=== PATIENT | female | born 2000 | race Caucasian/White ===

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

== ENCOUNTER → 2022-06-02 | Outpatient (CLI) | payer BC, SELFPAY ==
[2022-06-02 15:34] LABS: Absolute Lymphocyte Count 2.29 X10^3/uL (0.83-4.51); Absolute Neutrophil Count 8.1 X10^3/uL (2.0-7.7); Basophil# 0.07 X10^3/uL; Basophil% 0.6 % (0-1); Eosinophil# 0.67 X10^3/uL; Eosinophils% 5.7 % (0-5); Hematocrit 36.6 % (37-47); Hemoglobin 12.6 g/dL (12.0-15.0); Lymphocyte # 2.29 X10^3/ul (0.83-4.51); Lymphocyte % 19.4 % (19-41); Mean Corp Hgb Conc 34.4 g/dL (32-36); Mean Corpuscular Hgb 31.4 pg (27.0-32.0); Mean Corpuscular Volume 91.3 fL (81-99); Mean Platelet Vol. 10.1 fl (6.2-12.0); Monocyte# 0.66 X10^3/uL; Monocyte% 5.6 % (0-10); NRBC Flagged by Analyzer 0 % (0-5); Neutrophil # 8.07 X10^3/uL (2.7-7.7); Neutrophil % 68.2 % (47-70); Platelet Count 312 K/mm3 (150-450); RBC Distribution Width CV 11.6 % (11.6-14.6); RBC Distribution Width SD 38.9 fl (35.1-43.9); Red Blood Count 4.01 M/mm3 (4.2-5.4); White Blood Count 11.8 K/mm3 (4.4-11.0)
[2022-06-02 16:39] LABS: HIV - WCH Non-Reactive (Nonreactive); Hepatitis B Surface Antigen Non-Reactive (Nonreactive); Hepatitis C Antibody Non-Reactive (Nonreactive); Rubella IgG Reactive (Nonreactive); Syphilis Antibodies Non-reactive
[2022-06-05 00:07] LABS: Chlamydia By Nucleic Acid AMP Negative (Negative)
[2022-06-05 17:10] LABS: Gonococcus By Nucleic Acid AMP Negative (Negative)
[2022-06-06 15:43] LABS: V-Zoster IgG (Immunity) 389 index (Immune >165)
== END | disposition home or self-care (01) ==
LOC: WOBLAB 14:38
PROVIDERS: PCP Pediatrics; Visit Provider Student in an Organized Health Care Education/Training Program
DX: Z34.81 Encounter for supervision of other normal pregnancy, first trimester (principal)
CPT/HCPCS: 36415; 85025; 86703; 86762; 86780; 86787; 86803; 87086; 87340; 87491; 87591

== ENCOUNTER → 2022-10-19 | Outpatient (CLI) | payer OTHER, MEDICAID, SELFPAY ==
[2022-10-19 17:31] LABS: Absolute Neutrophil Count 8.9 X10^3/uL (2.0-7.7); Basophil# 0.08 X10^3/uL; Basophil% 0.6 % (0-1); Eosinophil# 0.72 X10^3/uL; Eosinophils% 5.8 % (0-5); Hematocrit 33.7 % (37-47); Hemoglobin 11.6 g/dL (12.0-15.0); Lymphocyte % 14.4 % (19-41); Mean Corp Hgb Conc 34.4 g/dL (32-36); Mean Corpuscular Hgb 32.2 pg (27.0-32.0); Mean Corpuscular Volume 93.6 fL (81-99); Mean Platelet Vol. 10.8 fl (6.2-12.0); Monocyte# 0.85 X10^3/uL; Monocyte% 6.8 % (0-10); NRBC Flagged by Analyzer 0 % (0-5); Neutrophil # 8.85 X10^3/uL (2.7-7.7); Neutrophil % 71.1 % (47-70); Platelet Count 233 K/mm3 (150-450); RBC Distribution Width CV 12.1 % (11.6-14.6); RBC Distribution Width SD 41.6 fl (35.1-43.9); White Blood Count 12.5 K/mm3 (4.4-11.0)
[2022-10-19 18:46] LABS: Glucose Challenge Gest 1H 50g 74 mg/dL (70-140)
== END | disposition home or self-care (01) ==
LOC: WOBLAB 16:30
PROVIDERS: PCP Pediatrics; Visit Provider Student in an Organized Health Care Education/Training Program
DX: Z34.82 Encounter for supervision of other normal pregnancy, second trimester (principal)
CPT/HCPCS: 36415; 82950; 85025

== ENCOUNTER 2022-12-23 19:15 | Inpatient (IN) | payer OTHER, MEDICAID, SELFPAY ==
[2022-12-23 18:06] VITALS: BP 136/80; PULSE 73; TEMP 37.4; O2SAT 99
[2022-12-23 18:21] VITALS: BMI 30.6
[2022-12-23 18:53] LABS: ROM Internal Control Test YES-OK TO RESULT pt. (Internal QC)
[2022-12-23 18:54] LABS: ROM Patient Test POSITIVE (Negative)
[2022-12-23] MEDS: Lactated Ringers 1,000 ML 50 ML IV (20:00)
--- NOTE | 2022-12-23 20:12 | PCM.HP.BLA ---
History and Physical Date of Admission: 12/23/22 Chief complaint: Leakage of fluid and back pain History present illness: 22-year-old G1, P0 at 37 weeks and 1 day with ALEXANDER 01/12/2023 arrives with lower back cramping also noted to have leakage of clear fluid since 630 this morning. Denies headache, vision change, chest pain, shortness of breath, nausea vomit, right upper quadrant pain. Patient states good movement. is complicated by BMI 30 Obstetric history: G1: Current Past medical history: None Medications: vitamin Allergies: No known drug allergies Past surgical history: None Family history: Denies history DVT or PE Social history: Denies smoking, alcohol use, drug use Review of systems: Besides above pertinent positives a full review of systems was performed and found to be negative Physical exam: Vitals: Blood pressure 136/80 pulse 73 temperature 99.3 ?F SPO2 99% on room air General: Normal-appearing no acute distress HEENT: Normocephalic/atraumatic no cervical lymphadenopathy Cardiac/respiratory: No use of accessory muscles, nonlabored breathing Abdomen: Soft, nontender, gravid Extremities: No peripheral edema normal peripheral pulses Psych: Normal affect, demeanor nonpressured speech Bedside ultrasound: Cephalic Labs: ROM positive Assessment and plan: 22-year-old G1, P0 at 37 weeks and 1 day arrives with PROM Admit labor and delivery CEFM GBS unknown: For rapid GBS. If positive rapid GBS for penicillin treatment. If rapid GBS negative will hold penicillin, patient with no risk factors at this time, will hold penicillin until 18 hours ruptured which would be at 12/24 @00:30. Reviewed this plan with nursing, to call if questions. Educated patient on unknown GBS and plan for antibiotics versus no antibiotics PROM: Patient with rupture membranes and no signs of labor will augment with Cytotec and later Pitocin. Educated patient on plan for augmentation Anesthesia to see
[2022-12-23 20:29] LABS: Absolute Lymphocyte Count 2.25 X10^3/uL (0.83-4.51); Absolute Neutrophil Count 11.6 X10^3/uL (2.0-7.7); Basophil% 0.6 % (0-1); Eosinophil# 0.37 X10^3/uL; Eosinophils% 2.4 % (0-5); Hematocrit 34.9 % (37-47); Hemoglobin 11.6 g/dL (12.0-15.0); Lymphocyte # 2.25 X10^3/ul (0.83-4.51); Lymphocyte % 14.5 % (19-41); Mean Corp Hgb Conc 33.2 g/dL (32-36); Mean Corpuscular Hgb 30.3 pg (27.0-32.0); Mean Corpuscular Volume 91.1 fL (81-99); Mean Platelet Vol. 11.9 fl (6.2-12.0); Monocyte# 1.01 X10^3/uL; Monocyte% 6.5 % (0-10); NRBC Flagged by Analyzer 0 % (0-5); Neutrophil # 11.63 X10^3/uL (2.7-7.7); POSITIVE COUNT YES; RBC Distribution Width SD 39.6 fl (35.1-43.9); Red Blood Count 3.83 M/mm3 (4.2-5.4); White Blood Count 15.5 K/mm3 (4.4-11.0)
[2022-12-23 20:58] LABS: Differential Indicated SCAN CRITERIA MET; Platelet Count 228 K/mm3 (150-450)
[2022-12-23 20:59] LABS: Differential Comment SCANNED
[2022-12-23 21:00] LABS: Syphilis Antibodies Non-reactive
[2022-12-23 21:26] VITALS: TEMP 36.8
[2022-12-23 21:30] VITALS: BP 126/61; PULSE 70
[2022-12-23 21:47] LABS: Group B Strep DNA By PCR Negative (Negative); Internal Control PASS; Probe Check PASS; Specimen Processing Control PASS
[2022-12-23] MEDS: miSOPROStol 25 MCG TABLET VAGINAL (21:50)
[2022-12-23 22:41] VITALS: TEMP 36.8
[2022-12-23 23:18] VITALS: TEMP 36.1
[2022-12-23 23:19] VITALS: BP 121/77; PULSE 66; PULSE 79; O2SAT 99
[2022-12-23] MEDS: Acetaminophen 500 MG Tablet PO (23:19)
[2022-12-24] VITALS (53 sets, daily range): BP systolic 102–138; BP diastolic 55–89; PULSE 56–96; RESP 14–18; TEMP 35.8–36.9; O2SAT 93–100
[2022-12-24] MEDS: LACTATED RINGERS 500 ML 999 ML IV ×2 (00:55→02:44)
[2022-12-24] MEDS: fentaNYL-bupivacaine (epidural) 100 ML BAG EPIDURAL (03:36)
[2022-12-24] MEDS: Terbutaline 1 MG/ML Vial 0.25 MG SC (04:10)
[2022-12-24] MEDS: Penicillin G 3,000,000 Units 50 ML 100 UNITS IV (05:23)
[2022-12-24] MEDS: Sodium Citrate/Citric Acid 30 ML UDC PO (06:54)
[2022-12-24] MEDS: Acetaminophen 500 MG Tablet 1000 MG PO ×3 (06:54→20:07)
--- NOTE | 2022-12-24 07:01 | PCM.PN.OB ---
Subjective Subjective Overall patient comfortable in bed with epidural Objective Data Objective Data Vital Signs: Vital Signs Temp Pulse Resp BP Pulse Ox O2 Del Method 97.2 F L 87 18 114/68 100 Room Air 12/24/22 06:51 12/24/22 06:52 12/24/22 06:51 12/24/22 06:51 12/24/22 06:52 12/24/22 06:51 Oxygen Delivery Method Room Air Weight: 173 lb Body Mass Index (BMI) 30.6 Intake & Output: Intake and Output for Last 24 Hours 12/22/22 12/23/22 12/24/22 23:59 23:59 23:59 Intake Total 1497.5 / 1497.5 Balance 1497.5 / 1497.5 Lab / Micro Data Result Diagrams: 12/23/22 19:50 Labs: Laboratory Results - last 24 hr 12/23/22 18:15: Vag Amniotic Fld Detect POSITIVE H 12/23/22 19:50: WBC 15.5 H, RBC 3.83 L, Hgb 11.6 L, Hct 34.9 L, MCV 91.1, MCH 30.3, MCHC 33.2, RDW Std Deviation 39.6, RDW Coeff of Deandra 12.0, Plt Count 228, MPV 11.9, Immature Gran % (Auto) 1.000 H, Neut % (Auto) 75.0 H, Lymph % (Auto) 14.5 L, [place] % (Auto) 6.5, Eos % (Auto) 2.4, Baso % (Auto) 0.6, Absolute Neuts (auto) 11.6 H, Absolute Lymphs (auto) 2.25, Nucleated RBC % 0, Differential Comment SCANNED 12/23/22 19:50: Blood Type AB POSITIVE, Antibody Screen NEGATIVE 12/23/22 19:50: Syphilis Total Ab Non-reactive 12/23/22 20:00: Group B Strep DNA Negative, Specimen Comment Not Reportable Physical Exam Const alert, oriented x3, average body habitus and healthy appearing HEENT normocephalic and moist oral mucous membranes Eyes PERRL Neck full ROM Resp normal respiratory effort, no retractions and no use of accessory muscles Psych mental status grossly normal, affect normal, speech normal and activity/motor behavior normal Assessment & Plan (1) : PLAN: Called overnight by nursing with either prolonged deceleration or recurrent late decelerations. Given orders overnight for terbutaline, after terbutaline continue position change. Repeat call by nursing discussed some improvement with heart rate tracing and then moments of recurrent lates, discussed expectant management and if unresolved for section. Called by nursing for repeat prolonged deceleration given orders that patient in need of primary section to get the surgical team ready and orders for 2 g Ancef and 500 mg of azithromycin. Upon my arrival patient seen and examined overall doing well, educated patient on heart rate tracing and overnight monitoring. Discussed no improvement with terbutaline and intolerance to labor. Educated patient on recommendation for primary section for intolerance to labor. Educated patient on the risk benefits alternatives include but are not limited to visceral or vascular injury, prolonged hospitalization, blood loss and need for transfusion, reoperation. Patient stated understanding wish to proceed. All questions were answered and consent was signed. For now
[2022-12-24] MEDS: Cefazolin 2 GM in 0.9% Normal Saline 100 ML IV (07:04)
[2022-12-24] MEDS: Methylergonovine 0.2 MG/ML Ampul IM (07:23)
--- NOTE | 2022-12-24 07:41 | OP.PCM_ITS ---
Details Operative Information Date of Procedure: 12/24/22 Pre-Operative Diagnosis: Term, intolerance to labor, failure to progress Post-Operative Diagnosis: Term, intolerance to labor, failure to progress scale technician #1: Yannick Lo Findings Description of Procedure: Procedure: Primary low transverse section Via Pfannenstiel incision Surgeon: Agustin Suh MD Anesthesia: Epidural EBL: 700 cc Urine output: 400 cc IV fluids: 1000 cc Complications: None Specimen: None Findings: Female infant in vertex position Apgars 8/9. Normal uterus, tubes, and ovaries. Consent: Patient arrived with PROM, augmentation of labor with Cytotec and Pitocin with failure to progress and intolerance to labor. Patient elects for primary low-transverse section Via Pfannenstiel incision. Patient understands risk of the procedure include but are not limited to visceral or vascular injury, prolonged hospitalization, blood loss need for transfusion, reoperation. Patient state understanding wish to proceed. All questions were answered and consent was signed. Procedure: Patient was brought back to the OR where epidural anesthesia was found to be adequate. 2 g of Ancef and 500 mg of azithromycin were given for infection prophylaxis. Patient prepared and draped in a supine position with leftward tilt. A Pfannenstiel incision was made at the skin with a scalpel. The incision carried down to the fascia with a scalpel. The fascia was excised and extended laterally. Rectus muscle was dissected the midline down to the level of the pubic symphysis. Preperitoneal fatty tissue was noted and peritoneum was entered bluntly. Peritoneum was extended superiorly and inferiorly with good visualization of bladder. Bladder blade was inserted and vesicouterine peritoneum was identified. Low transverse hysterotomy incision was made. Hand was placed in the incision and gentle fundal pressure was applied once the head was brought into the incision and bladder blade was removed. Head and shoulders were delivered with ease. Cord was clamped and cut. Baby handed off to nursing. IV oxytocin per protocol and prophylactic IM Methergine given to ini tiate uterine contractions. Uterus was exteriorized and wiped out with dry laparotomy sponge in order to remove remaining placental membranes. Uterus was closed in a continuous running fashion. [id number] sutures were used for hemostasis. Good hemostasis was noted. Uterus was placed back in the abdominal cavity and the incision was reinspected, good hemostasis was noted. Fascia was closed in continuous running fashion with PDS suture. Subcutaneous irrigation was performed, good hemostasis was noted. Skin was closed in a subcuticular fashion. All counts were correct x2. Patient tolerated procedure well and was brought to recovery in a stable condition.
[2022-12-24] MEDS: Oxytocin 15 Units/NS 250ml 15 UNITS/250 ML IV.SOLN 83 UNITS IV (08:00)
[2022-12-24] MEDS: Ketorolac 30 MG/ML Syringe IV ×3 (09:19→20:54)
[2022-12-24] MEDS: Lactated Ringers 1,000 ML 100 ML IV (12:05)
[2022-12-24] MEDS: DiphenhydrAMINE 25 MG Capsule PO (13:43)
[2022-12-24] MEDS: 0.9% Saline Lock 10 ML Syringe IV ×2 (15:03→20:54)
[2022-12-24] MEDS: Enoxaparin 40 MG/0.4 ML Syringe SC (20:07)
[2022-12-25] MEDS: Acetaminophen 500 MG Tablet 1000 MG PO ×3 (02:06→16:12)
[2022-12-25] MEDS: Ketorolac 30 MG/ML Syringe IV (03:06)
[2022-12-25] MEDS: 0.9% Saline Lock 10 ML Syringe IV (03:06)
--- NOTE | 2022-12-25 03:40 | NURSING ---
pt voided twice after after cath removal. First void not measured in hat, 2nd void 100ml.
[2022-12-25 05:40] LABS: Hematocrit 30.6 % (37-47); Mean Corp Hgb Conc 32.7 g/dL (32-36); Mean Corpuscular Hgb 29.7 pg (27.0-32.0); Mean Corpuscular Volume 90.8 fL (81-99); Mean Platelet Vol. 11.2 fl (6.2-12.0); Platelet Count 205 K/mm3 (150-450); RBC Distribution Width CV 12.4 % (11.6-14.6); RBC Distribution Width SD 40.2 fl (35.1-43.9); Red Blood Count 3.37 M/mm3 (4.2-5.4); White Blood Count 15.8 K/mm3 (4.4-11.0)
[2022-12-25 07:51] VITALS: BP 112/68; PULSE 65; RESP 16; TEMP 36.3; O2SAT 98
--- NOTE | 2022-12-25 10:11 | PCM.DC.BLA ---
Discharge Summary Date of Admission: 12/23/22 Date of Discharge: 12/25/22 Summary: Patient arrived on 12/23/2022 with spontaneous rupture of membranes. Labor was attempted to augment but intolerance of labor subsequently had primary section on 12/24/2022. Routine postoperative recovery and discharged home on 12/25/2022 Meaningful Use Info Meaningful Use Diagnoses (Choose all that apply): None applicable Discharge Plan Admission Admit Date/Time: 12/23/22 19:15 Primary Reason for Your Visit: Spontaneous rupture of membranes Attending Provider: Agustin Suh Primary Care Provider: Aparna Aviles Primary Instructions Additional Instructions / Restrictions: Regular diet. Okay to shower. No tub baths for 2 weeks. No lifting over 25 pounds for 2 to 3 weeks. No intercourse for 4 to 6 weeks. Call if fevers, chills, chest pain, shortness of breath. Follow-up 2 weeks postoperatively Discharge Orders/Prescriptions Prescriptions: New oxycodone 5 mg Tablet 5 mg PO Q6H PRN PRN (Reason: Pain Score 7-10) 4 Days Qty: 16 0RF Discontinued 1 tab PO.IVFORM DAILY Referrals / Follow Up: Care Physician,Aparna Primary [Primary Care Provider] - Disposition Disposition (needs filled in before D/C Order can be placed): Home, Self Care
--- NOTE | 2022-12-25 10:50 | CASEMGMT ---
Social Work Assessment Labor and Delivery Unit Reason for Referral: patient request resources History obtained from: medical records and mother of baby (MOB) Household composition: MOB reports she and her significant other rent a home and have no other children. Patient's parent/guardian status: MOB reports she has been with FOB, Kvng Lovelace for five years. FOB is actively involved with MOB?s care and NB needs. FOB Is employed at his father?s business and will have ?some? time off for paternity leave. MOB reports no concerns with DV, AOD or MH for FOB. ? Medical History: MOB reports this is her first . MOB was engaged in care with Jamison at [facility] since April. MOB reports no current plan for control. NB is Caraline, born 12/24/22, weighing 6 pounds 14 ounces. NB?s visual display associate will be Dr. العلي and MOB plans to breast feed. Educational Status: MOB reports highest level of education is high school. 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 while on leave, however, patient explained she was informed she wouldn?t be able to return after maternity leave. 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 Patient?s significant other is employed night time babysitter. Infant Supplies: MOB reports having all the supplies needed including a car seat, bassinet in their bedroom, clothes and diapers/wipes. MOB reports NB will transition to their own room after a year old into a crib. Childcare/Caregiver(s): MOB reports she will be home with NB but will eventually find a job when the NB is older. MOB explained they have assistance from MOBs Mom and FOBs Mom. Transportation: MOB report they have vehicles, no concerns. ?? Programs/Agencies Involved: ???MOB reports insurance with [facility] and explained she sent an email to schedule an appointment for unemployment, SW encouraged MOB to call or o in person. MOB plans to sign up with [facility]. ?? Children Services/Legal Issues: None reported??? Behavioral Health Issues: ??Mental Health History:? MOB reports no mental health history MOB denies AOD use or history and reports not being engaged in counseling services. Family/Social Stressors:? No stressors identified. Support Systems: MOB reports she is supported by FOB, their parents and her best friend. Depression/Shaken Baby/Safe Sleeping: SW educated MOB on depression/anxiety as well as shaken baby. MOB report NB will be sleeping in a basinet beside their bed. SW also educated MOB on safe sleep. SW also provided MOB with further information on the topics. MOB report understanding and voice no other needs. SW encouraged MOB to contact OB or PCP if she is concerned with symptoms. ??? ASSESSMENT:? SW met with MOB and introduced herself and role as [facility] Cashier General. MOB in agreement to speak with SW with FOB?s mother present. SW utilized open and close ended questions to gather information needed for an assessment. MOB report having supplies needed, identified supports and reports working with [facility] for resources and plans to enroll in WIC. MOB report no MH history or stressors. SW educated MOB on safe sleep, shaken baby and PPD/A. MARYSOL also provided local resources for [facility], [facility] Me [facility] and WIC. During assessment, MOB interacted appropriately with , no concerns at this time. MOB declined referrals. MARYSOL updated RN of resources provided, no concerns. PLAN:? ?No other services requested or indicated. Hui Landaverde COLLEGE RE[employer], RAOUL
[2022-12-25] MEDS: Senna/Docusate Sodium 1 Tablet PO (10:52)
[2022-12-25] MEDS: Enoxaparin 40 MG/0.4 ML Syringe SC (10:52)
[2022-12-25] MEDS: Ibuprofen 600 MG Tablet PO ×2 (10:53→19:01)
[2022-12-25 10:57] VITALS: BP 115/74; PULSE 66; RESP 16; TEMP 36.4; O2SAT 100
[2022-12-25 17:58] VITALS: BP 118/76; PULSE 87; RESP 16; TEMP 36.6; O2SAT 99
[2022-12-25 19:10] VITALS: BP 118/76; PULSE 87; RESP 16; TEMP 36.6; O2SAT 99
== END 2022-12-25 19:50 | disposition home or self-care (01) | DRG 788 ==
LOC: WPOUT 19:19 → WP 19:19
PROVIDERS: Student in an Organized Health Care Education/Training Program; Admitting Provider Obstetrics & Gynecology; Referring Provider Obstetrics & Gynecology; Visit Provider Obstetrics & Gynecology
DX: O76 Abnormality in fetal heart rate and rhythm complicating labor and delivery (principal); O42.92 Full-term premature rupture of membranes, unspecified as to length of time between rupture and onset of labor; O99.824 Streptococcus B carrier state complicating childbirth; Z3A.37 37 weeks gestation of pregnancy; Z37.0 Single live birth
CPT/HCPCS: 59025; 59050; 76815; 84112; 85025; 85027; 86780; 86850; 86900; 86901; 87081; 87653; 99221; J7120; A4216; G0378; J2405